=== PATIENT | male | born 1960 | race African-American/Black ===

== ENCOUNTER 2017-11-25 14:23 | Emergency (ER) | payer OTHER ==
[~2017-11-25] VITALS: Ht 175.3 cm; Wt 74.8 kg
--- NOTE | ~2017-11-25 | EKG ---
[address] [address] ELECTROCARDIOGRAM REPORT Name: ADANOMAYRA Room #: DEP Michelle#: [id number] Admission: 11/25/17 Attend Phys: Discharge: 11/25/17 Date of : 56 Report #: [id number] THIS REPORT FOR: //name// [facility] ED Test Date: 2017-11-25 Test Time: 16:36:59 Pat Name: OMAYRA ARELLANO Department: Room: Gender: [employer]: [facility] : 1960 Requested By: Maryann Snowden Order Number: [id number] MD: Prabhu Emanuel Measurements Intervals [place] Rate: 76 P: 61 LA: 182 QRS: 41 QRSD: 85 T: 46 QT: 389 QTc: 438 Interpretive Statements Sinus rhythm Normal tracing No previous ECG available for comparison Electronically Signed On 11-26-2017 8:18:16 CDT by Prabhu Emanuel [email or web address] <ELECTRONICALLY SIGNED> By: Prabhu Emanuel MD, [facility] 11/26/17 0818 [id number] [id number] Prabhu Emanuel MD, FACC /EPI
[2017-11-25 15:50] LABS: URINE BILIRUBIN NEGATIVE (Negative); URINE BLOOD NEGATIVE (Negative); URINE CLARITY CLEAR; URINE COLOR YELLOW; URINE GLUCOSE-RANDOM* NEGATIVE (Negative); URINE KETONES NEGATIVE (Negative); URINE LEUKOCYTES-REFLEX NEGATIVE (Negative); URINE NITRITE-REFLEX NEGATIVE (Negative); URINE PROTEIN (DIPSTICK) 1+ (Negative); URINE SPECIFIC GRAVITY >= 1.030 (1.005-1.035)
[2017-11-25 15:55] LABS: ABSOLUTE NEUTROPHILS 6.6 thou/uL (1.4-8.2); BASOPHILS 0.4 % (0.0-2.0); EOSINOPHILS 0.3 % (0.0-3.0); HEMOGLOBIN 17.1 gm/dL (14.0-18.0); LYMPHOCYTES 12.6 % (24.0-44.0); MCH 30.4 pg (26.0-34.0); MCHC 34.9 g/dL (28.0-37.0); MCV 87.2 fL (80.0-100.0); MONOCYTES 9.2 % (1.0-8.0); PLATELET COUNT 201 thou/uL (150-400); POLYS 77.5 % (36.0-66.0); RBC 5.62 mil/uL (4.50-6.00); RDW 15.6 % (10.5-14.5); WBC 8.6 thou/uL (4.0-11.0)
[2017-11-25 16:04] LABS: CALCIUM 9.7 mg/dL (8.5-10.1); CREATININE 1.1 mg/dL (0.7-1.3)
[2017-11-25 16:15] LABS: CASTS None Seen /LPF (None Seen); MUCUS 0-3 Light strn/LPF (None Seen); SQUAMOUS 0-3 Few /LPF (0-3)
[2017-11-25 16:16] LABS: BACTERIA-REFLEX None Seen /HPF (None Seen); CRYSTALS None Seen /LPF (None Seen); URINE RBC None Seen /HPF (0-2); URINE WBC-REFLEX 0-5 Rare /HPF (0-5)
[2017-11-25 18:21] VITALS: BP 186/106
== END 2017-11-25 18:23 | disposition home or self-care (01) ==
LOC: ER 14:23
PROVIDERS: Emergency Medicine
DX: R74.8 Abnormal levels of other serum enzymes (principal); M79.10 Myalgia, unspecified site; R42 Dizziness and giddiness; F17.210 Nicotine dependence, cigarettes, uncomplicated; I10 Essential (primary) hypertension; F32.9 Major depressive disorder, single episode, unspecified; Z88.0 Allergy status to penicillin